=== PATIENT | male | born 1930 | race Caucasian/White ===

== ENCOUNTER 2017-02-17 11:39 | Emergency (ER) | payer OTHER ==
[~2017-02-17 11:39] MED LIST: ALBUAER2 INH; ASPEC325 PO; CHERRY PACK; LRT5 PO; SYMIN160 INH; TIOTCAP INH
[2017-02-17 11:40] VITALS: TEMP 37.5
[2017-02-17] MEDS ORDERED: FUROSEMIDE 40 MG/4 ML VIAL ONE (11:43)
[2017-02-17 11:59] LABS: BASO % 0.1 %; BASO ABS # 0.01 K/uL (0-0.2); COMPLETE YES; EOS % 0.1 %; HEMATOCRIT 51.6 % (42-52); IG% 0.4 %; LYMPH % 6.3 %; LYMPH ABS # 1.04 K/uL (1.2-3.4); MEAN CELL VOLUME 97.7 fL (80-100); MEAN CORPUSCULAR HEMOGLOBIN 31.1 pg (25-34); MEAN CORPUSCULAR HGB CONC 31.8 g/dl (32-36); MEAN PLATELET VOLUME 11.5 fL (7.4-10.4); MONO % 3.8 %; NEUT % 89.3 %; PLATELET COUNT 165 K/uL (130-400); RED BLOOD COUNT 5.28 M/uL (4.7-6.1); WHITE BLOOD COUNT 16.48 K/uL (4.8-10.8)
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
[2017-02-17 12:06] VITALS: PULSE 108; O2SAT 93
--- NOTE | 2017-02-17 12:12 | DIAGNOSTIC IMAGING REPORT ---
SINGLE VIEW CHEST CLINICAL HISTORY: CHF. FINDINGS: 2 AP, portable, upright chest radiographs are compared to study dated 03/07/2011. The examination is significantly degraded by portable technique and patient rotation. The cardiomediastinal silhouette is unremarkable. There is advanced atherosclerotic calcification of the thoracic aorta. Enlargement of the central pulmonary vessels suggests pulmonary artery hypertension. There is no radiographic evidence of congestive failure. Advanced emphysema and chronic interstitial thickening are similar to previous. Patchy airspace consolidation is identified the right lung base. Airspace opacities at the left lung base likely represent atelectasis. No large pleural effusion or pneumothorax is seen. The skeletal structures are osteopenic. Degenerative change and compression deformities are noted in the thoracic spine. Healed bilateral rib fractures are noted. Advanced degenerative change is present in the shoulders. IMPRESSION: 1. Advanced emphysema. 2. Patchy airspace consolidation is seen at the right lung base. This likely represents developing pneumonia/aspiration pneumonitis. Clinical correlation will be required and radiographic follow-up to resolution is recommended Electronically signed by: Elvin Ramos M.D. 02/17/2017 12:10 PM Dictated Date/Time: 02/17/2017 12:07 PM
[2017-02-17 12:20] LABS: INR 1.1 (0.9-1.1); PROTHROMBIN TIME (PATIENT) 11.5 SECONDS (9.0-12.0)
[2017-02-17 12:28] LABS: ALT/SGPT 47 U/L (12-78); BLOOD UREA NITROGEN 49 mg/dl (7-18); BUN/CREATININE RATIO 30.7 (10-20); CARBON DIOXIDE 24 mmol/L (21-32); CHLORIDE 117 mmol/L (98-107); GLUCOSE 114 mg/dl (70-99); SODIUM 150 mmol/L (136-145)
[2017-02-17] MEDS ORDERED: DOBUTamine / D5W 500 MG IV PRN (12:30)
[2017-02-17 12:31] LABS: CALCIUM 8.5 mg/dl (8.5-10.1)
[2017-02-17 12:33] LABS: ALB/GLOB RATIO 0.8 (0.9-2); ALKALINE PHOSPHATASE 163 U/L (45-117); AST/SGOT 21 U/L (15-37)
[2017-02-17 13:41] VITALS: O2SAT 100
[2017-02-17 14:24] VITALS: BP 75/44; PULSE 112; O2SAT 100
== END 2017-02-17 14:20 | disposition short-term general hospital (02) ==
LOC: EDBD 11:39 → C.EDB 11:40
DX: J81.1 Chronic pulmonary edema (principal); S11.91XA Laceration without foreign body of unspecified part of neck, initial encounter; S31.119A Laceration without foreign body of abdominal wall, unspecified quadrant without penetration into peritoneal cavity, initial encounter; S21.129A Laceration with foreign body of unspecified front wall of thorax without penetration into thoracic cavity, initial encounter; I95.9 Hypotension, unspecified; W45.8XXA Other foreign body or object entering through skin, initial encounter; Y93.E8 Activity, other personal hygiene; Z80.9 Family history of malignant neoplasm, unspecified; Z83.3 Family history of diabetes mellitus; Z82.49 Family history of ischemic heart disease and other diseases of the circulatory system; Z87.891 Personal history of nicotine dependence; Z79.82 Long term (current) use of aspirin; Z79.899 Other long term (current) drug therapy; Z93.6 Other artificial openings of urinary tract status